=== PATIENT | female | born 1970 | race Caucasian/White ===

== ENCOUNTER 2017-01-03 01:56 | Observation (INO) | payer OTHER ==
[2017-01-03 02:38] VITALS: BMI 31.8
[2017-01-03] MEDS ORDERED: ONDANSETRON 4 MG/2 ML VIAL ONE ×3 (02:50→16:58)
[2017-01-03] MEDS ORDERED: ONDANSETRON 4 MG/2 ML VIAL IVPUSH ONE ×2 (02:54→07:33)
[2017-01-03] MEDS ORDERED: SODIUM CHLORIDE 1,000 ML IV ONE (02:55)
[2017-01-03] MEDS ORDERED: METOCLOPRAMIDE HCL INJECTION 10 MG/2 ML VIAL ONE (03:34)
[2017-01-03] MEDS ORDERED: METOCLOPRAMIDE HCL INJECTION 10 MG/2 ML VIAL IVPUSH ONE (03:40)
[2017-01-03 03:55] LABS: BASOPHIL 0.5 % (0-2.0); MCH 28.5 pg (25.7-33.7); MCHC 34.9 g/dl (32.0-36.0); MEAN CELL VOLUME 81.6 fl (80-96); MEAN PLT VOLUME 9.1 fl (7.5-11.1); NEUTROPHILS 82.4 % (42.8-82.8); PLATELET COUNT 279 K/MM3 (134-434); RDW 14.3 % (11.6-15.6); WHITE BLOOD COUNT 11.7 K/mm3 (4.0-10.0)
[2017-01-03 04:00] LABS: URINE APPEARANCE SLCLOUDY; URINE BILIRUBIN NEGATIVE (NEGATIVE); URINE BLOOD NEGATIVE (NEGATIVE); URINE COLOR AMBER; URINE GLUCOSE (UA) NEGATIVE (NEGATIVE); URINE KETONE 2+ (NEGATIVE); URINE NITRITE NEGATIVE (NEGATIVE); URINE UROBILINOGEN NEGATIVE mg/dL (0.2-1.0)
[2017-01-03 04:21] LABS: URINE PROTEIN 2+ (NEGATIVE)
[2017-01-03 04:34] LABS: URINE BACTERIA RARE /hpf (NONE SEEN); URINE MUCUS RARE; URINE RBC 100 /hpf (0-3); URINE WBC 4 /hpf (3-5)
[2017-01-03] MEDS ORDERED: SODIUM CHLORIDE 0.9% 500 ML INFUS.BAG IV ONE (04:40)
--- NOTE | 2017-01-03 04:40 | PDOC ---
History of Present Illness - General History Source: Patient Exam Limitations: No Limitations - History of Present Illness Initial Comments: 01/03/17 06:47 The patient is a 46 year old female with history significant for R breast CA s/ p mastectomy presents to the ED complaining of multiple episodes of nonbloody nonbilious vomiting that began around 5 PM today. The patient reports she has been experiencing cough and congestion recently preceding her vomiting. She also complains of burning midsternal chest pain only after she vomits. She states she has been unable to tolerate PO this evening and was not able to take her regular medications. No abdominal pain or diarrhea. No fever or chills. No lightheadedness or palpitations. No sick contacts or recent travel. <Carissa Winter - Last Filed: 01/03/17 06:46> <Caitlyn Vasquez - Last Filed: 01/03/17 07:24> - General Chief Complaint: Nausea/Vomiting Stated Complaint: VOMITING Time Seen by Provider: 01/03/17 02:52 Past History <Carissa Winter - Last Filed: 01/03/17 06:46> - Past Medical History Cancer: Yes (Breast) HTN: Yes Psychiatric Problems: Yes (Anxiety) - Suicide/Smoking/Psychosocial Hx Smoking History: Current every day smoker Number of Cigarettes Smoked Daily: 20 Information on smoking cessation initiated: No Hx Alcohol Use: No Drug/Substance Use Hx: No Substance Use Type: None <Caitlyn Vasquez - Last Filed: 01/03/17 07:24> - Past Medical History Allergies/Adverse Reactions: Allergies Allergy/AdvReac Type Severity Reaction Status Date / Time amoxicillin Allergy Verified 01/03/17 02:36 cefuroxime axetil Allergy Verified 01/03/17 02:36 [From Ceftin] Penicillins Allergy Verified 01/03/17 02:36 sumatriptan [From Imitrex] Allergy Verified 01/03/17 02:36 sumatriptan succinate Allergy Verified 01/03/17 02:36 [From Imitrex] Home Medications: Ambulatory Orders Bupropion HCl [Wellbutrin -] 0 mg PO DAILY 01/03/17 Gabapentin [Neurontin] 0 mg PO DAILY 01/03/17 Lisinopril 0 mg PO DAILY 01/03/17 Morphine *Immediate Release* [Msir -] 30 mg PO BID 01/03/17 Paroxetine HCl [Paxil] 20 mg PO DAILY 01/03/17 Promethazine HCl [Phenergan -] 0 mg PO DAILY 01/03/17 Propranolol HCl [Inderal -] 0 mg PO DAILY 01/03/17 Review of Systems - Review of Systems Able to Perform ROS?: Yes Comments:: 01/03/17 06:47 GENERAL/CONSTITUTIONAL: No fever or chills. No weakness. HEAD, EYES, EARS, NOSE AND THROAT: No change in vision. No ear pain or discharge. No sore throat. GASTROINTESTINAL: +Nausea, multiple episodes of NBNB vomiting. No abdominal pain , no diarrhea or constipation. GENITOURINARY: No dysuria, frequency, or change in urination. CARDIOVASCULAR: +Chest pain. No lightheadedness or palpitations. RESPIRATORY: +Cough, chest congestion. No wheezing, or hemoptysis. MUSCULOSKELETAL: No joint or muscle swelling or pain. No neck or back pain. SKIN: No rash NEUROLOGIC: No headache, vertigo, loss of consciousness, or change in strength/ sensation. ENDOCRINE: No increased thirst. No abnormal weight change. HEMATOLOGIC/LYMPHATIC: No anemia, easy bleeding, or history of blood clots. ALLERGIC/IMMUNOLOGIC: No hives or skin allergy. <Carissa Winter - Last Filed: 01/03/17 06:46> *Physical Exam - Vital Signs Last Vital Signs Temp Pulse Resp BP Pulse Ox 84 14 135/91 97 01/03/17 02:37 01/03/17 02:37 01/03/17 02:37 01/03/17 02:37 - Physical Exam Comments: 01/03/17 06:47 GENERAL: Awake, alert, and fully oriented, in no acute distress HEAD: No signs of trauma EYES: PERRLA, EOMI, sclera anicteric, conjunctiva clear ENT: Auricles normal inspection, hearing grossly normal, nares patent, oropharynx clear without exudates. +Dry mucous membranes NECK: Normal ROM, supple, no lymphadenopathy, JVD, or masses LUNGS: Breath sounds equal, clear to auscultation bilaterally. No wheezes, and no crackles HEART: Regular rate and rhythm, normal S1 and S2, no murmurs, rubs or gallops ABDOMEN: Soft, nontender, normoactive bowel sounds. No guarding, no rebound. No masses EXTREMITIES: Normal range of motion, no edema. No clubbing or cyanosis. No cords, erythema, or tenderness BACK: No midline spinal tenderness in cervical/thoracic/lumbar region NEUROLOGICAL: Normal speech, cranial nerves intact, negative pronator drift, 5/ 5 strength in all 4 extremities, normal sensation to light touch in all 4 extremities, normal cerebellar exam, normal gait, normal reflexes and tone SKIN: Warm, Dry, normal turgor, no rashes or lesions noted. <Carissa Winter - Last Filed: 01/03/17 06:46> - Vital Signs Last Vital Signs Temp Pulse Resp BP Pulse Ox 84 14 135/91 97 01/03/17 02:37 01/03/17 02:37 01/03/17 02:37 01/03/17 02:37 <Caitlyn Vasquez - Last Filed: 01/03/17 07:24> ED Treatment Course - LABORATORY CBC & Chemistry Diagram: 01/03/17 03:40 01/03/17 04:50 - ADDITIONAL ORDERS Additional order review: Laboratory Results 01/03/17 01/03/17 01/03/17 04:50 04:50 03:40 Sodium 137 Potassium 3.0 L Chloride 98 Carbon Dioxide 23 Anion Gap 16 BUN 7 Creatinine 0.6 Creat Clearance w eGFR > 60 Random Glucose 109 H Lactic Acid 1.2 Calcium 8.6 Total Bilirubin 0.7 AST 12 L ALT 55 Alkaline Phosphatase 104 Total Protein 7.6 Albumin 3.7 Lipase 95 Serum , Qual Urine Color Mariam Urine Appearance Slcloudy Urine pH 7.0 Urine Protein 2+ H Urine Glucose (UA) Negative Urine Ketones 2+ H Urine Blood Negative Urine Nitrite Negative Urine Bilirubin Negative Urine Urobilinogen Negative Urine RBC 100 Urine WBC 4 Ur Epithelial Cells Rare Urine Bacteria Rare Urine Mucus Rare 01/03/17 01/03/17 03:40 03:40 Sodium Cancelled Potassium Cancelled Chloride Cancelled Carbon Dioxide Cancelled Anion Gap Cancelled BUN Cancelled Creatinine Cancelled Creat Clearance w eGFR Cancelled Random Glucose Cancelled Lactic Acid Calcium Cancelled Total Bilirubin Cancelled AST Cancelled ALT Cancelled Alkaline Phosphatase Cancelled Total Protein Cancelled Albumin Cancelled Lipase Cancelled Serum , Qual Negative Urine Color Urine Appearance Urine pH Urine Protein Urine Glucose (UA) Urine Ketones Urine Blood Urine Nitrite Urine Bilirubin Urine Urobilinogen Urine RBC Urine WBC Ur Epithelial Cells Urine Bacteria Urine Mucus 01/03/17 03:40 RBC 6.17 H MCV 81.6 MCHC 34.9 RDW 14.3 MPV 9.1 Neutrophils % 82.4 Lymphocytes % 12.2 Monocytes % 4.9 Eosinophils % 0.0 Basophils % 0.5 - Medications Given in the ED: ED Medications Discontinued Medications Generic Name Dose Route Start Last Admin Trade Name Tono PRN Reason Stop Dose Admin Acetaminophen 1,000 mg 01/03/17 04:42 01/03/17 05:05 Ofirmev Injection - IVPB 01/03/17 04:43 1,000 mg ONCE ONE Administration Sodium Chloride 1,000 mls @ 1,000 mls/hr 01/03/17 02:55 01/03/17 02:55 Normal Saline - IV 01/03/17 03:54 1,000 mls/hr ASDIR ONE Administration Famotidine/Sodium Chloride 50 mls @ 100 mls/hr 01/03/17 04:43 01/03/17 05:00 Pepcid 20 Mg Premixed Ivpb - IVPB 01/03/17 05:12 100 mls/hr ONCE ONE Administration Lorazepam 1 mg 01/03/17 04:40 01/03/17 05:05 Ativan Injection - IVPUSH 01/03/17 04:41 1 mg ONCE ONE Administration Metoclopramide HCl 10 mg 01/03/17 03:40 01/03/17 03:40 Reglan Injection - IVPUSH 01/03/17 03:41 10 mg NOW ONE Administration Ondansetron HCl 4 mg 01/03/17 02:54 01/03/17 02:55 Zofran Injection IVPUSH 01/03/17 02:55 4 mg NOW ONE Administration Sodium Chloride 1,000 ml 01/03/17 04:40 01/03/17 04:59 Normal Saline - IV 01/03/17 04:41 1,000 ml ONCE ONE Administration <Carissa Winter - Last Filed: 01/03/17 06:46> - LABORATORY CBC & Chemistry Diagram: 01/03/17 03:40 01/03/17 04:50 - ADDITIONAL ORDERS Additional order review: Laboratory Results 01/03/17 01/03/17 01/03/17 03:40 03:40 03:40 Sodium Cancelled Potassium Cancelled Chloride Cancelled Carbon Dioxide Cancelled Anion Gap Cancelled BUN Cancelled Creatinine Cancelled Creat Clearance w eGFR Cancelled Random Glucose Cancelled Calcium Cancelled Total Bilirubin Cancelled AST Cancelled ALT Cancelled Alkaline Phosphatase Cancelled Total Protein Cancelled Albumin Cancelled Lipase Cancelled Serum , Qual Negative Urine Color Mariam Urine Appearance Slcloudy Urine pH 7.0 Urine Protein 2+ H Urine Glucose (UA) Negative Urine Ketones 2+ H Urine Blood Negative Urine Nitrite Negative Urine Bilirubin Negative Urine Urobilinogen Negative 01/03/17 03:40 RBC 6.17 H MCV 81.6 MCHC 34.9 RDW 14.3 MPV 9.1 Neutrophils % 82.4 Lymphocytes % 12.2 Monocytes % 4.9 Eosinophils % 0.0 Basophils % 0.5 - Medications Given in the ED: ED Medications Discontinued Medications Generic Name Dose Route Start Last Admin Trade Name Freq PRN Reason Stop Dose Admin Sodium Chloride 1,000 mls @ 1,000 mls/hr 01/03/17 02:55 01/03/17 02:55 Normal Saline - IV 01/03/17 03:54 1,000 mls/hr ASDIR ONE Administration Metoclopramide HCl 10 mg 01/03/17 03:40 01/03/17 03:40 Reglan Injection - IVPUSH 01/03/17 03:41 10 mg NOW ONE Administration Ondansetron HCl 4 mg 01/03/17 02:54 01/03/17 02:55 Zofran Injection IVPUSH 01/03/17 02:55 4 mg NOW ONE Administration <Caitlyn Vasquez - Last Filed: 01/03/17 07:24> Medical Decision Making - Medical Decision Making 01/03/17 07:22 46-year-old female with a history of breast CA status post lumpectomy presents with nausea and vomiting since 5 PM with associated chest pain after emesis episodes. Vitals are unremarkable. Exam with no abdominal tenderness. Differential includes but is not limited to gastroenteritis versus pancreatitis versus colitis. -labs -UA -UPT -antiemtics -reassess [facility] for further management. <Caitlyn Vasquez - Last Filed: 01/03/17 07:24> *DC/Admit/Observation/Transfer - Attestations Scribe Attestion: 01/03/17 06:47 Documentation prepared by Carissa Winter, acting as medical billing coordinator for Caitlyn Vasquez MD. <Carissa Winter - Last Filed: 01/03/17 06:46> <Caitlyn Vasquez - Last Filed: 01/03/17 07:24> - Referrals Referrals: STAFF,NOT ON [Primary Care Provider] -
[2017-01-03] MEDS ORDERED: ACETAMINOPHEN 1000 MG/100 ML VIAL (NON FORMULARY) IVPB ONE (04:42)
[2017-01-03] MEDS ORDERED: FAMOTIDINE 20 MG/50 ML IVPB 50 ML IVPB ONE ×2 (04:43→04:47)
[2017-01-03] MEDS ORDERED: ACETAMINOPHEN INJECTION 100 ML IVPB ONE (04:46)
[2017-01-03 05:35] LABS: ALBUMIN 3.7 g/dl (3.4-5.0); ALK PHOS 104 U/L (45-117); ANION GAP 16 (8-16); BILIRUBIN,TOTAL 0.7 mg/dL (0.2-1.0); CALCIUM 8.6 mg/dL (8.5-10.1); CO2 23 mmol/L (21-32); CREATININE 0.6 mg/dL (0.55-1.02); GLUCOSE,RANDOM 109 mg/dL (74-106); SGOT/AST 12 U/L (15-37); SGPT/ALT 55 U/L (12-78); TOT PROT 7.6 g/dl (6.4-8.2)
[2017-01-03] MEDS ORDERED: KCL 10 MEQ IVPB 100 ML IVPB ONE ×8 (05:40→09:09)
[2017-01-03] MEDS ORDERED: KCL 10 MEQ IVPB 100 ML IVPB SCH ×2 (06:30→08:15)
--- NOTE | 2017-01-03 08:00 | PDOC ---
*Physical Exam - Vital Signs Last Vital Signs Temp Pulse Resp BP Pulse Ox 84 14 135/91 97 01/03/17 02:37 01/03/17 02:37 01/03/17 02:37 01/03/17 02:37 - Physical Exam Comments: 01/03/17 07:54 gen: aaox3, appears uncomfortable heart: +s1s2 reg Lungs: cta b/l abd: soft, nt/nd +bs ext: no c/c/e Heart Score/ECG Review - ECG Intrepretation Comment:: 01/03/17 07:55 sinus at 85, nl axis, nl interval, no acute st/t wave findings ED Treatment Course - LABORATORY CBC & Chemistry Diagram: 01/03/17 03:40 01/03/17 04:50 - ADDITIONAL ORDERS Additional order review: Laboratory Results 01/03/17 01/03/17 01/03/17 04:50 04:50 03:40 Sodium 137 Potassium 3.0 L Chloride 98 Carbon Dioxide 23 Anion Gap 16 BUN 7 Creatinine 0.6 Creat Clearance w eGFR > 60 Random Glucose 109 H Lactic Acid 1.2 Calcium 8.6 Total Bilirubin 0.7 AST 12 L ALT 55 Alkaline Phosphatase 104 Total Protein 7.6 Albumin 3.7 Lipase 95 Serum , Qual Urine Color Mariam Urine Appearance Slcloudy Urine pH 7.0 Urine Protein 2+ H Urine Glucose (UA) Negative Urine Ketones 2+ H Urine Blood Negative Urine Nitrite Negative Urine Bilirubin Negative Urine Urobilinogen Negative Urine RBC 100 Urine WBC 4 Ur Epithelial Cells Rare Urine Bacteria Rare Urine Mucus Rare 01/03/17 01/03/17 03:40 03:40 Sodium Cancelled Potassium Cancelled Chloride Cancelled Carbon Dioxide Cancelled Anion Gap Cancelled BUN Cancelled Creatinine Cancelled Creat Clearance w eGFR Cancelled Random Glucose Cancelled Lactic Acid Calcium Cancelled Total Bilirubin Cancelled AST Cancelled ALT Cancelled Alkaline Phosphatase Cancelled Total Protein Cancelled Albumin Cancelled Lipase Cancelled Serum , Qual Negative Urine Color Urine Appearance Urine pH Urine Protein Urine Glucose (UA) Urine Ketones Urine Blood Urine Nitrite Urine Bilirubin Urine Urobilinogen Urine RBC Urine WBC Ur Epithelial Cells Urine Bacteria Urine Mucus 01/03/17 03:40 RBC 6.17 H MCV 81.6 MCHC 34.9 RDW 14.3 MPV 9.1 Neutrophils % 82.4 Lymphocytes % 12.2 Monocytes % 4.9 Eosinophils % 0.0 Basophils % 0.5 - Medications Given in the ED: ED Medications Discontinued Medications Generic Name Dose Route Start Last Admin Trade Name Tono PRN Reason Stop Dose Admin Acetaminophen 1,000 mg 01/03/17 04:42 01/03/17 05:05 Ofirmev Injection - IVPB 01/03/17 04:43 1,000 mg ONCE ONE Administration Sodium Chloride 1,000 mls @ 1,000 mls/hr 01/03/17 02:55 01/03/17 02:55 Normal Saline - IV 01/03/17 03:54 1,000 mls/hr ASDIR ONE Administration Famotidine/Sodium Chloride 50 mls @ 100 mls/hr 01/03/17 04:43 01/03/17 05:00 Pepcid 20 Mg Premixed Ivpb - IVPB 01/03/17 05:12 100 mls/hr ONCE ONE Administration Potassium Chloride 100 mls @ 100 mls/hr 01/03/17 06:30 01/03/17 06:37 Potassium Chloride 10 Meq Premix Ivpb - IVPB 01/03/17 07:29 100 mls/hr Q60M JOSE Administration Lorazepam 1 mg 01/03/17 04:40 01/03/17 05:05 Ativan Injection - IVPUSH 01/03/17 04:41 1 mg ONCE ONE Administration Metoclopramide HCl 10 mg 01/03/17 03:40 01/03/17 03:40 Reglan Injection - IVPUSH 01/03/17 03:41 10 mg NOW ONE Administration Ondansetron HCl 4 mg 01/03/17 02:54 01/03/17 02:55 Zofran Injection IVPUSH 01/03/17 02:55 4 mg NOW ONE Administration Sodium Chloride 1,000 ml 01/03/17 04:40 01/03/17 04:59 Normal Saline - IV 01/03/17 04:41 1,000 ml ONCE ONE Administration Medical Decision Making - Medical Decision Making 01/03/17 07:55 pt signed out pending re-eval for persistent n/v -pt with green vomitus and feeling nauseated again -has not yet been able to tolerate PO -will most likely need observation for poss viral gastroenteritis and persistent n/v -pt also with hypokalemia and unable to tolerate oral PO potassium -receiving IV K+ 01/03/17 07:57 microblog sent to the hospitalist service pending observation for persistent n/v 01/03/17 08:01 case discussed with Kasandra Garcia covering observation who accepts pt to obs. 01/03/17 08:02 *DC/Admit/Observation/Transfer Diagnosis at time of Disposition: Intractable vomiting with nausea, Hypokalemia, Dehydration - Discharge Dispostion Condition at time of disposition: Guarded Admit: Yes - Referrals Referrals: STAFF,NOT ON [Primary Care Provider] - - Patient Instructions - Post Discharge Activity
[2017-01-03] MEDS ORDERED: SODIUM CHLORIDE 0.9% 1000 ML INFUS.BAG IV ONE (08:04)
[2017-01-03] MEDS ORDERED: LACTATED RINGERS SOLUTION 1,000 ML IV SCH (08:15)
[2017-01-03 08:48] LABS: URINE LEUK ESTERASE Negative (NEGATIVE)
--- NOTE | 2017-01-03 09:57 | HP ---
CHIEF COMPLAINT: nausea and vomiting. PCP:none HISTORY OF PRESENT ILLNESS: 46 yo F with PMHx of breast ca (s/p mastectomy and radiation), HTN and depression presents with 2 day history of intractable vomiting. She states that for the past 48 hours she has not been able to hold any food down. She has vomited approx 10 times nonbloody and nonbillous. She states that there is no abdominal pain but has recently had runny nose and chills. No dietary changes or sick contacts. No recent travel. Nausea is accompanied by chest pain which she relates to vomiting. Denies ROLON, SOB, abdominal pain . ER course was notable for: (1)zofran for nausea (2)EKG shows NSR w/o st or t wave abnormalities (3) Recent Travel:denies PAST MEDICAL HISTORY:breast ca, htn, anxiety PAST SURGICAL HISTORY:mastecomy Social History: Smokin pack year history Alcohol:denies Drugs: denies Family History:mother with breast cancer (alive) Allergies amoxicillin Allergy (Verified 01/03/17 02:36) cefuroxime axetil [From Ceftin] Allergy (Verified 01/03/17 02:36) Penicillins Allergy (Verified 01/03/17 02:36) sumatriptan [From Imitrex] Allergy (Verified 01/03/17 02:36) sumatriptan succinate [From Imitrex] Allergy (Verified 01/03/17 02:36) HOME MEDICATIONS: Home Medications Medication Instructions Recorded Bupropion HCl [Wellbutrin -] 0 mg PO DAILY 01/03/17 Gabapentin [Neurontin] 0 mg PO DAILY 01/03/17 Lisinopril 0 mg PO DAILY 01/03/17 Morphine *Immediate Release* [Msir 30 mg PO BID 01/03/17 -] Paroxetine HCl [Paxil] 20 mg PO DAILY 01/03/17 Promethazine HCl [Phenergan -] 0 mg PO DAILY 01/03/17 Propranolol HCl [Inderal -] 0 mg PO DAILY 01/03/17 REVIEW OF SYSTEMS CONSTITUTIONAL: Absent: fever, chills, diaphoresis, generalized weakness, malaise, loss of appetite, weight change HEENT: Absent: rhinorrhea, nasal congestion, throat pain, throat swelling, difficulty swallowing, mouth swelling, ear pain, eye pain, visual changes CARDIOVASCULAR: Absent: chest pain, syncope, palpitations, irregular heart rate, lightheadedness , peripheral edema RESPIRATORY: Absent: cough, shortness of breath, dyspnea with exertion, orthopnea, wheezing, stridor, hemoptysis GASTROINTESTINAL:abdominal distension, nausea, vomiting Absent: abdominal pain, , diarrhea, constipation, melena, hematochezia GENITOURINARY: Absent: dysuria, frequency, urgency, hesitancy, hematuria, flank pain, genital pain MUSCULOSKELETAL: Absent: myalgia, arthralgia, joint swelling, back pain, neck pain SKIN: Absent: rash, itching, pallor HEMATOLOGIC/IMMUNOLOGIC: Absent: easy bleeding, easy bruising, lymphadenopathy, frequent infections ENDOCRINE: Absent: unexplained weight gain, unexplained weight loss, heat intolerance, cold intolerance NEUROLOGIC: Absent: headache, focal weakness or paresthesias, dizziness, unsteady gait, seizure, mental status changes, bladder or bowel incontinence PSYCHIATRIC: Absent: anxiety, depression, suicidal or homicidal ideation, hallucinations. PHYSICAL EXAMINATION Vital Signs - 24 hr 01/03/17 09:01 Pulse Rate [ 90 Left] Respiratory 16 Rate Blood Pressure 154/94 [Arm] O2 Sat by Pulse 95 Oximetry (%) GENERAL: AAOx3 , mild distress. HEAD: Normal with no signs of trauma. EYES:PERRLA, EOMI EARS, NOSE, THROAT: Moist mucous membranes. NECK: supple without lymphadenopathy, JVD, or masses. LUNGS: CTAB, No wheezes, and no crackles. No accessory muscle use. HEART: RRR, normal S1 and S2 without murmur, rub or gallop. ABDOMEN: Soft, obese, nontender, not distended, normoactive bowel sounds, no guarding, no rebound, no masses. UPPER EXTREMITIES: 2+ pulses, warm, well-perfused. No cyanosis. No clubbing. No peripheral edema. LOWER EXTREMITIES: 2+ pulses, warm, well-perfused. No calf tenderness. No peripheral edema. NEUROLOGICAL: Cranial nerves II-XII intact. Normal speech. Normal gait. PSYCHIATRIC: Cooperative. Good eye contact. Appropriate mood and affect. SKIN: left chest s/p mastectomy ASSESSMENT/PLAN: 46 yo F with PMHx of breast ca (s/p mastectomy and radiation), HTN and depression presents with 2 day history of intractable vomiting placed on observation. Problem List - Problem (1) Intractable nausea and vomiting Assessment/Plan: * IVF with 1/2 NS * NPO * Zofran for nausea (2) Hypokalemia Assessment/Plan: * will replete and recheck * most likely from GI loses (3) HTN (hypertension) (4) Depression Visit type - Emergency Visit Emergency Visit: Yes ED Registration Date: 01/03/17 Care time: The patient presented to the Emergency Department on the above date and was hospitalized for further evaluation of their emergent condition. - New Patient This patient is new to me today: Yes Date on this admission: 01/05/17 - Critical Care Critical Care patient: No
--- NOTE | 2017-01-03 10:29 | PN ---
Teaching Attending Note Name of Resident: Claude Joya ATTENDING PHYSICIAN STATEMENT I saw and evaluated the patient. I reviewed the resident's note and discussed the case with the resident. I agree with the resident's findings and plan as documented. SUBJECTIVE: This is a 46 year old woman with a history of breast cancer, left mastectomy, MRSA at the mastectomy site, HTN, anxiety who comes to the ER complaining of nausea and vomiting since yesterday. She has been vomiting clear fluid. She denies fever, chills, abdominal pain, diarrhea. She had URI symptoms for 2 days prior to yesterday. OBJECTIVE: Vital Signs Period Temp Pulse Resp BP Sys/[place] Pulse Ox Last 24 Hr 84-90 14-16 135-154/91-94 95-97 HEART: S1S2, RRR LUNGS: Clear ABDOMEN: Obese, soft, non-tender, non-distended, normal BS EXTREMITIES: No edema Home Medications Medication Instructions Recorded Bupropion HCl [Wellbutrin -] 0 mg PO DAILY 01/03/17 Gabapentin [Neurontin] 0 mg PO DAILY 01/03/17 Lisinopril 0 mg PO DAILY 01/03/17 Morphine *Immediate Release* [Msir 30 mg PO BID 01/03/17 -] Paroxetine HCl [Paxil] 20 mg PO DAILY 01/03/17 Promethazine HCl [Phenergan -] 0 mg PO DAILY 01/03/17 Propranolol HCl [Inderal -] 0 mg PO DAILY 01/03/17 Laboratory Tests 01/03/17 01/03/17 01/03/17 03:40 03:40 03:40 WBC 11.7 H RBC 6.17 H Hgb 17.6 H Hct 50.3 H MCV 81.6 MCH 28.5 MCHC 34.9 RDW 14.3 Plt Count 279 MPV 9.1 Neutrophils % 82.4 Lymphocytes % 12.2 Monocytes % 4.9 Eosinophils % 0.0 Basophils % 0.5 Sodium Cancelled Potassium Cancelled Chloride Cancelled Carbon Dioxide Cancelled Anion Gap Cancelled BUN Cancelled Creatinine Cancelled Creat Clearance w eGFR Cancelled Random Glucose Cancelled Lactic Acid Calcium Cancelled Total Bilirubin Cancelled AST Cancelled ALT Cancelled Alkaline Phosphatase Cancelled Total Protein Cancelled Albumin Cancelled Lipase Cancelled Serum , Qual Negative Urine Color Urine Appearance Urine pH Ur Specific [place] Urine Protein Urine Glucose (UA) Urine Ketones Urine Blood Urine Nitrite Urine Bilirubin Urine Urobilinogen Ur Leukocyte Esterase Urine RBC Urine WBC Ur Epithelial Cells Urine Bacteria Urine Mucus 01/03/17 01/03/17 01/03/17 03:40 04:50 04:50 WBC RBC Hgb Hct MCV MCH MCHC RDW Plt Count MPV Neutrophils % Lymphocytes % Monocytes % Eosinophils % Basophils % Sodium 137 Potassium 3.0 L Chloride 98 Carbon Dioxide 23 Anion Gap 16 BUN 7 Creatinine 0.6 Creat Clearance w eGFR > 60 Random Glucose 109 H Lactic Acid 1.2 Calcium 8.6 Total Bilirubin 0.7 AST 12 L ALT 55 Alkaline Phosphatase 104 Total Protein 7.6 Albumin 3.7 Lipase 95 Serum , Qual Urine Color Mariam Urine Appearance Slcloudy Urine pH 7.0 Ur Specific [place] 1.020 Urine Protein 2+ H Urine Glucose (UA) Negative Urine Ketones 2+ H Urine Blood Negative Urine Nitrite Negative Urine Bilirubin Negative Urine Urobilinogen Negative Ur Leukocyte Esterase Negative Urine RBC 100 Urine WBC 4 Ur Epithelial Cells Rare Urine Bacteria Rare Urine Mucus Rare ASSESSMENT AND PLAN: This is a 46 year old woman with a history of left breast cancer, treated with mastectomy and XRT, MRSA at the mastectomy site, HTN, anxiety who presented to the ER today with nausea and vomiting since yesterday. 1. Acute gastroenteritis with nausea and vomiting - Place in observation - NPO - IV fluid - Zofran as needed for nausea 2. Hypokalemia secondary to vomiting - Replete potassium 3. Left breast cancer, history of mastectomy and XRT 4. History of MRSA infection of mastectomy wound 5. HTN - Continue Lisinopril, Inderal 6. Chronic pain at mastectomy site - Continue Neurontin, morphine 7. Anxiety - Continue Paxil, Wellbutrin
[2017-01-03] MEDS ORDERED: D5-1/2NS+40 MEQ KCL - 1,000 ML IV SCH (12:00)
[2017-01-03 15:58] LABS: BASOPHIL 0.7 % (0-2.0); MCH 28.2 pg (25.7-33.7); MCHC 34.6 g/dl (32.0-36.0); MEAN CELL VOLUME 81.5 fl (80-96); MEAN PLT VOLUME 8.7 fl (7.5-11.1); PLATELET COUNT 246 K/MM3 (134-434); RDW 14.3 % (11.6-15.6); WHITE BLOOD COUNT 14.3 K/mm3 (4.0-10.0)
[2017-01-03 16:17] LABS: ANION GAP 16 (8-16); CALCIUM 8.5 mg/dL (8.5-10.1); CO2 21 mmol/L (21-32); CREATININE 0.5 mg/dL (0.55-1.02); GLUCOSE,RANDOM 97 mg/dL (74-106)
[2017-01-03] MEDS: PROPRANOLOL HCL 10 MG TABLET (FP) PO SCH (17:38)
[2017-01-03] MEDS: LISINOPRIL 5 MG TABLET (FP) PO SCH (17:38)
[2017-01-03] MEDS: buPROPion HCL 75 MG TABLET PO SCH (17:38)
[2017-01-03] MEDS: PARoxetine HCL 20 MG TABLET (FP) PO SCH (17:38)
[2017-01-03] MEDS ORDERED: morphine SULFATE IMMEDIATE RELEASE 30 MG TAB PO STA (18:26)
[2017-01-03] MEDS ORDERED: morphine SO4 SUSTAINED ACTING 15 MG TABLET.SA PO SCH (18:30)
[2017-01-03] MEDS: morphine SULFATE IMMEDIATE RELEASE 30 MG TAB PO SCH (18:32)
[2017-01-03] MEDS ORDERED: ACETAMINOPHEN WITH CODEINE 300MG/30MG TABLET PO ONE (18:41)
[2017-01-03] MEDS ORDERED: GABAPENTIN 100 MG CAPSULE (FP) ONE (19:14)
[2017-01-03] MEDS ORDERED: ACETAMINOPHEN WITH CODEINE 300MG/30MG TABLET ONE (19:14)
[2017-01-03] MEDS: GABAPENTIN 100 MG CAPSULE (FP) PO SCH (19:15)
--- NOTE | 2017-01-03 20:07 | EKG ---
Test Reason : Blood Pressure : / mmHG Vent. Rate : 085 BPM Atrial Rate : 085 BPM P-R Int : 158 ms QRS Dur : 074 ms QT Int : 386 ms P-R-T Axes : 074 075 066 degrees QTc Int : 459 ms NORMAL SINUS RHYTHM POSSIBLE LEFT ATRIAL ENLARGEMENT BORDERLINE ECG NO PREVIOUS ECGS AVAILABLE REPEAT EKG IF CLINICALLY INDICATED Confirmed by JUAN JNI MD ([id number] on 01/03/2017 8:06:55 PM Referred By: Confirmed By:JUAN JIN MD
[2017-01-03] MEDS: KCL 10 MEQ IVPB 100 ML IVPB SCH ×2 (21:10→23:00)
[2017-01-03] MEDS ORDERED: morphine SULFATE IMMEDIATE RELEASE 30 MG TAB PO SCH ×2 (22:00)
[2017-01-03] MEDS: ONDANSETRON 4 MG/2 ML VIAL IVPB PRN (22:29)
[2017-01-04] MEDS: KCL 10 MEQ IVPB 100 ML IVPB SCH (00:26)
[2017-01-04] MEDS: morphine SULFATE IMMEDIATE RELEASE 30 MG TAB PO SCH ×2 (00:27→06:33)
[2017-01-04] MEDS: ONDANSETRON 4 MG/2 ML VIAL IVPB PRN ×3 (06:03→17:35)
[2017-01-04 07:49] LABS: BASOPHIL 0.4 % (0-2.0); MCH 28.4 pg (25.7-33.7); MCHC 35.5 g/dl (32.0-36.0); MEAN CELL VOLUME 79.8 fl (80-96); MEAN PLT VOLUME 8.4 fl (7.5-11.1); PLATELET COUNT 222 K/MM3 (134-434); WHITE BLOOD COUNT 12.2 K/mm3 (4.0-10.0)
[2017-01-04 08:03] LABS: ALBUMIN 3.5 g/dl (3.4-5.0); ALK PHOS 85 U/L (45-117); ANION GAP 10 (8-16); BILIRUBIN,TOTAL 0.7 mg/dL (0.2-1.0); CALCIUM 8.4 mg/dL (8.5-10.1); CO2 25 mmol/L (21-32); CREATININE 0.5 mg/dL (0.55-1.02); GLUCOSE,RANDOM 110 mg/dL (74-106); MAGNESIUM 1.8 mg/dL (1.8-2.4); PHOSPHOROUS 1.8 mg/dL (2.5-4.9); SGOT/AST 12 U/L (15-37); SGPT/ALT 39 U/L (12-78)
[2017-01-04] MEDS ORDERED: HEPARIN NA (PORCINE) 5,000 UNITS/ML 1ML VIAL SQ ONE (10:00)
[2017-01-04] MEDS ORDERED: LIDOCAINE 5% TOPICAL PATCH TP SCH (10:00)
[2017-01-04] MEDS ORDERED: PROMETHAZINE HCL 25 MG TABLET PO SCH (10:00)
[2017-01-04] MEDS ORDERED: LISINOPRIL 5 MG TABLET (FP) PO SCH (10:00)
[2017-01-04] MEDS ORDERED: PARoxetine HCL 20 MG TABLET (FP) PO SCH (10:00)
[2017-01-04] MEDS ORDERED: buPROPion HCL 75 MG TABLET PO SCH (10:00)
[2017-01-04] MEDS ORDERED: NICOTINE 21 MG/24 HOURS TOPICAL PATCH TD SCH (10:00)
[2017-01-04] MEDS ORDERED: GABAPENTIN 100 MG CAPSULE (FP) PO SCH (10:00)
[2017-01-04] MEDS ORDERED: PROPRANOLOL HCL 10 MG TABLET (FP) PO SCH (10:00)
[2017-01-04] MEDS ORDERED: PT OWN MED DRAWER 7, Y5N ONE (10:29)
[2017-01-04] MEDS ORDERED: PARoxetine HCL 10 MG TABLET (FP) ONE (10:29)
[2017-01-04] MEDS: PARoxetine HCL 20 MG TABLET (FP) PO SCH (10:34)
[2017-01-04] MEDS: GABAPENTIN 100 MG CAPSULE (FP) PO SCH (10:35)
[2017-01-04] MEDS: LISINOPRIL 5 MG TABLET (FP) PO SCH (10:35)
[2017-01-04] MEDS: PROPRANOLOL HCL 10 MG TABLET (FP) PO SCH (10:36)
[2017-01-04] MEDS ORDERED: POTASSIUM CHLORIDE TABS 20 MEQ TABLET.ER (FP) PO ONE (10:45)
[2017-01-04] MEDS ORDERED: NAPH,MB-DB/K PH,MBDB POWDER PACKET PO ONE (10:45)
--- NOTE | 2017-01-04 10:58 | PN ---
Progress Note (short form) - Note Progress Note: Subjective: The patient was seen and examined at the bedside, she reports her nausea is better and she would like to eat and go home Current Medications Generic Name Dose Route Start Last Admin Trade Name Freq PRN Reason Stop Dose Admin Bupropion HCl 75 mg 01/03/17 17:15 01/03/17 17:38 Wellbutrin - PO 75 mg DAILY JOSE Administration Gabapentin 100 mg 01/03/17 18:32 01/04/17 10:35 Neurontin - PO 100 mg DAILY JOSE Administration Potassium Chloride 100 mls @ 100 mls/hr 01/03/17 05:44 01/03/17 05:45 Potassium Chloride 10 Meq Premix Ivpb - IVPB 100 mls/hr Q60M ONE Administration Potassium Chloride 100 mls @ 100 mls/hr 01/03/17 07:32 01/03/17 08:28 Potassium Chloride 10 Meq Premix Ivpb - IVPB 100 mls/hr Q60M ONE Administration Lidocaine 1 patch 01/04/17 10:00 Lidoderm Patch - TP DAILY JOSE Lisinopril 5 mg 01/03/17 17:16 01/04/17 10:35 Prinivil PO 5 mg DAILY JOSE Administration Miscellaneous 1 each 01/04/17 22:00 Lidoderm Patch Removal MC DAILY@2200 JOSE Morphine Sulfate 15 mg 01/04/17 10:10 Msir - PO Q6H PRN Morphine Sulfate 15 mg 01/04/17 11:00 01/04/17 10:34 Ms Contin - PO 15 mg BID JOSE Administration Nicotine 21 mg 01/04/17 10:00 Nicoderm Patch - TD DAILY JOSE Ondansetron HCl 4 mg 01/03/17 11:54 01/04/17 06:03 Zofran Injection IVPB 4 mg Q6H PRN Administration NAUSEA Paroxetine HCl 20 mg 01/03/17 17:14 01/04/17 10:34 Paxil - PO 20 mg DAILY JOSE Administration Promethazine HCl 25 mg 01/04/17 10:00 01/04/17 10:37 Phenergan - PO 25 mg DAILY JOSE Administration Propranolol HCl 10 mg 01/03/17 17:14 01/04/17 10:36 Inderal - PO 10 mg DAILY JOSE Administration Objective: Vital Signs Period Temp Pulse Resp BP Sys/[place] Pulse Ox Last 24 Hr 98.3 F-98.9 F 72-94 18-20 133-183/70-99 94-100 Physical Exam: General: NAD, A&Ox3 Lungs: CTA bilaterally Heart: RRR, S1S2 Abd: Soft, non-tender, non-distended. Normoactive bowel sounds Ext: Warm, well-perfused. 2+ DP/PT bilaterally Skin: Left breast s/p mastectomy MSK: mid chest with reproducible chest pain CBCD WBC 12.2 K/mm3 (4.0-10.0) H 01/04/17 06:00 RBC 5.40 M/mm3 (3.60-5.2) H 01/04/17 06:00 Hgb 15.3 GM/dL (10.7-15.3) 01/04/17 06:00 Hct 43.1 % (32.4-45.2) 01/04/17 06:00 MCV 79.8 fl (80-96) L 01/04/17 06:00 MCHC 35.5 g/dl (32.0-36.0) 01/04/17 06:00 RDW 14.0 % (11.6-15.6) 01/04/17 06:00 Plt Count 222 K/MM3 (134-434) 01/04/17 06:00 MPV 8.4 fl (7.5-11.1) 01/04/17 06:00 CMP Sodium 131 mmol/L (136-145) L 01/04/17 06:00 Potassium 3.3 mmol/L (3.5-5.1) L 01/04/17 06:00 Chloride 96 mmol/L (98-107) L 01/04/17 06:00 Carbon Dioxide 25 mmol/L (21-32) 01/04/17 06:00 Anion Gap 10 (8-16) 01/04/17 06:00 BUN 3 mg/dL (7-18) L D 01/04/17 06:00 Creatinine 0.5 mg/dL (0.55-1.02) L 01/04/17 06:00 Creat Clearance w eGFR > 60 (>60) 01/04/17 06:00 Random Glucose 110 mg/dL (74-106) H 01/04/17 06:00 Calcium 8.4 mg/dL (8.5-10.1) L 01/04/17 06:00 Total Bilirubin 0.7 mg/dL (0.2-1.0) 01/04/17 06:00 AST 12 U/L (15-37) L 01/04/17 06:00 ALT 39 U/L (12-78) D 01/04/17 06:00 Alkaline Phosphatase 85 U/L (45-117) 01/04/17 06:00 Total Protein 7.0 g/dl (6.4-8.2) 01/04/17 06:00 Albumin 3.5 g/dl (3.4-5.0) 01/04/17 06:00 Assessment: This is a 46 year old female with PMHx of left breast cancer s/p unilateral mastectomy and xrt, 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, HTN, anxiety, chronic pain, who presented to the ED with nausea and vomiting Plan: 1) GI: Acute gastroenteritis - Improving - Advance diet as tolerated - Zofran prn 2) Chronic pain - Continue Morphine SR - Continue Morphine IR - Lidocaine patch 3) HTN - Continue Lisinopril - Continue Inderal 4) Anxiety - Continue Paxil - Continue Wellbutrin 5) F/E/N: - Hypokalemia: replete - Hypophosphatemia: replete - Hyponatreamia: Stop IV fluids and recheck this PM - Regular diet as tolerated 6) Prophylaxis: - OOB ambulating - SCDs bilaterally 7) Dispo: - Once electrolyte imbalances improve Drug Utilization Report Reference #[id number] Rx Written Rx Dispensed Drug Quantity Days Supply Prescriber Name 12/23/2016 12/26/2016 morphine sulf er 15 mg tablet 60 30 Maine Mayer NP 12/13/2016 12/13/2016 morphine sulfate ir 15 mg tab 150 30 Maine Mayer NP 11/28/2016 11/28/2016 morphine sulfate ir 15 mg tab 86 17 Maine Mayer NP 11/25/2016 11/25/2016 morphine sulf er 15 mg tablet 60 30 Maine Mayer NP 10/18/2016 10/26/2016 morphine sulf er 15 mg tablet 60 30 Maine Mayer NP 10/18/2016 10/19/2016 morphine sulfate ir 15 mg tab 150 30 Maine Mayer NP 09/19/2016 09/27/2016 morphine sulf er 15 mg tablet 60 30 Maine Mayer [employer] 09/19/2016 09/23/2016 morphine sulfate ir 15 mg tab 150 30 Maine Mayer [employer] CODE STATUS: FULL CODE Visit type - Emergency Visit Emergency Visit: Yes ED Registration Date: 01/03/17 Care time: The patient presented to the Emergency Department on the above date and was hospitalized for further evaluation of their emergent condition. - New Patient This patient is new to me today: Yes Date on this admission: 01/04/17 - Critical Care Critical Care patient: No
[2017-01-04] MEDS ORDERED: morphine SO4 SUSTAINED ACTING 15 MG TABLET.SA PO SCH (11:00)
[2017-01-04] MEDS: morphine SULFATE IMMEDIATE RELEASE 30 MG TAB PO PRN ×2 (11:17→17:35)
[2017-01-04] MEDS: buPROPion HCL 75 MG TABLET PO SCH (14:38)
[2017-01-04 17:16] LABS: ANION GAP 12 (8-16); CALCIUM 9.1 mg/dL (8.5-10.1); CO2 27 mmol/L (21-32); CREATININE 0.6 mg/dL (0.55-1.02); GLUCOSE,RANDOM 84 mg/dL (74-106); PHOSPHOROUS 2.8 mg/dL (2.5-4.9)
--- NOTE | 2017-01-04 17:39 | DS ---
Physical Examination Vital Signs: Vital Signs Temperature 98.6 F 01/04/17 15:02 Pulse Rate 63 01/04/17 15:02 Respiratory Rate 20 01/04/17 15:02 Blood Pressure 156/94 01/04/17 15:02 O2 Sat by Pulse Oximetry (%) 97 01/04/17 12:05 Labs: CBC, BMP 01/04/17 06:00 01/04/17 15:40 Discharge Summary Reason For Visit: INTRACTABLE VOMITING WITH NAUSEA Current Active Problems Dehydration (Acute) Hypokalemia (Acute) Intractable nausea and vomiting (Acute) Condition: Improved - Instructions Diet, Activity, Other Instructions: Please return to the ED with new, persistent, or worsening symptoms. Please follow-up with providers as indicated. Referrals: Ankit Davis MD [Staff Physician] - 1 Week Guillermo Ozuna MD [Staff Physician] - (Please follow-up with Dr. Ozuna for further management of your chronic pain) Disposition: HOME - Home Medications Comprehensive Discharge Medication List: Ambulatory Orders Paroxetine HCl [Paxil] 20 mg PO DAILY 01/03/17 Promethazine HCl [Phenergan -] 0 mg PO DAILY 01/03/17 Bupropion HCl [Wellbutrin -] 75 mg PO DAILY #1 tab 01/04/17 Gabapentin [Neurontin] 100 mg PO DAILY #1 tab 01/04/17 Lidocaine 5% Patch [Lidoderm -] 1 patch TP DAILY #30 patch 01/04/17 Lisinopril 5 mg PO DAILY #1 tab 01/04/17 Morphine *Immediate Release* [Msir -] 15 mg PO Q6H #0 tab MDD 60mg 01/04/17 Morphine *Sr* [Ms Contin -] 15 mg PO BID #1 tab MDD 30mg 01/04/17 Nicotine Patch [Nicoderm Patch -] 21 mg TD DAILY #30 patch 01/04/17 Propranolol HCl [Inderal -] 10 mg PO DAILY #0 tab 01/04/17
[2017-01-04 20:01] VITALS: BP 151/87; PULSE 67; TEMP 98.2
[2017-01-04] MEDS ORDERED: LIDOCAINE PATCH REMOVAL MC SCH (22:00)
== END 2017-01-04 20:40 | disposition home or self-care (01) ==
LOC: JER 01:56 → JERBED 08:03 → J7W 20:18
PROVIDERS: ADMIT Internal Medicine; ATTEND Registered Nurse
PROC: 3E033NZ Introduction of Analgesics, Hypnotics, Sedatives into Peripheral Vein, Percutaneous Approach (ICD-10-PCS; principal; 2017-01-03)
PROC: 3E033GC Introduction of Other Therapeutic Substance into Peripheral Vein, Percutaneous Approach (ICD-10-PCS; 2017-01-03)
PROC: 3E013GC Introduction of Other Therapeutic Substance into Subcutaneous Tissue, Percutaneous Approach (ICD-10-PCS; 2017-01-03)
PROC: 3E0337Z Introduction of Electrolytic and Water Balance Substance into Peripheral Vein, Percutaneous Approach (ICD-10-PCS; 2017-01-03)
DX: K52.9 Noninfective gastroenteritis and colitis, unspecified (principal); E86.0 Dehydration; R11.2 Nausea with vomiting, unspecified; E87.6 Hypokalemia; I10 Essential (primary) hypertension; F17.210 Nicotine dependence, cigarettes, uncomplicated; F41.9 Anxiety disorder, unspecified; Z85.3 Personal history of malignant neoplasm of breast; Z90.11 Acquired absence of right breast and nipple; Z88.0 Allergy status to penicillin; Z88.1 Allergy status to other antibiotic agents; Z88.8 Allergy status to other drugs, medicaments and biological substances
CPT/HCPCS: 36415; 71020-TC; 80048; 80053; 81003; 81015; 83605; 83690; 83735; 84100; 84703; 85025; 93005; 93010; 99285-25; G0378